=== PATIENT | female | born 1990 | race Caucasian/White ===

== ENCOUNTER 2019-10-28 07:55 | Emergency (ER) | payer MEDICAID ==
[~2019-10-28] VITALS: Ht 152.4 cm; Wt 74.0 kg
[2019-10-28 08:02] VITALS: BP 133/75
--- NOTE | 2019-10-28 08:07 | NUR ---
PATIENT TO BED 11
--- NOTE | 2019-10-28 08:20 | NUR ---
DR. GARNICA AT BEDSIDE EVALUATING PT
--- NOTE | 2019-10-28 08:30 | NUR ---
PT LEFT TO XRAY VIA WHEELCHAIR
--- NOTE | 2019-10-28 08:42 | NUR ---
C/O INTERMITTENT DRY AND MOIST COUGH/FEVER X1 MONTH. PT REPORTS INTERMITTENT CHILLS/BODY ACHES THAT WILL GO AWAY FOR 2-3 DAYS AND THEN COME BACK. DENIES RECENT TRAVEL, HEMOPTYSIS, DIURESIS, N/V/D. LUNG SOUNDS CAEBL, NO LABORED BREATHING OR ACCESORY MUSCLE USE NOTED. O2 SAT 98% RA. AFEBRILE AT THIS TIME. BED IN LOW POSITION, SIDE RAIL UP X1.
[2019-10-28 09:04] VITALS: BP 133/75
--- NOTE | 2019-10-28 09:04 | NUR ---
Patient discharged with v/s stable. Written and verbal after care instructions given and explained. Patient alert, oriented and verbalized understanding of instructions. Ambulatory with steady gait. All questions addressed prior to discharge. ID band removed. Patient advised to follow up with PMD. Rx of PROMETHAZINE & CLARITIN D given. Patient educated on indication of medication including possible reaction and side effects. Opportunity to ask questions provided and answered.
== END 2019-10-28 09:04 | disposition home or self-care (01) ==
LOC: MED 07:55
DX: J40 Bronchitis, not specified as acute or chronic (principal); R03.0 Elevated blood-pressure reading, without diagnosis of hypertension; Z90.49 Acquired absence of other specified parts of digestive tract; Z98.890 Other specified postprocedural states; Z88.0 Allergy status to penicillin
CPT/HCPCS: 71046; 99283